=== PATIENT | female | born 1970 | race Caucasian/White ===

== ENCOUNTER 2023-03-05 18:53 | Emergency (ER) | payer SELFPAY ==
[2023-03-05] MEDS ORDERED: diphenhydrAMINE 25 MG CAP ONE (20:01)
[2023-03-05] MEDS ORDERED: Famotidine 20 MG TAB ONE (20:01)
[2023-03-05] MEDS ORDERED: predniSONE 20 MG TAB ONE (20:01)
[2023-03-05] MEDS ORDERED: Ibuprofen 200 MG TAB ONE (20:01)
== END 2023-03-05 21:13 | disposition home or self-care (01) ==
LOC: ERS 18:53
DX: T78.40XA Allergy, unspecified, initial encounter (principal); E78.5 Hyperlipidemia, unspecified; I10 Essential (primary) hypertension; Z87.891 Personal history of nicotine dependence
CPT/HCPCS: 99283; J7512

== ENCOUNTER 2023-04-04 05:37 | Emergency (ER) | payer SELFPAY ==
[2023-04-04] MEDS ORDERED: Fluorescein Opthalmic Strip ONE (06:05)
[2023-04-04] MEDS ORDERED: Proparacaine 0.5% Opth 15 ML BOT ONE (06:05)
== END 2023-04-04 06:20 | disposition home or self-care (01) ==
LOC: ERS 05:37
DX: S05.01XA Injury of conjunctiva and corneal abrasion without foreign body, right eye, initial encounter (principal); I10 Essential (primary) hypertension; X58.XXXA Exposure to other specified factors, initial encounter; Z87.891 Personal history of nicotine dependence
CPT/HCPCS: 99282

== ENCOUNTER 2023-04-21 13:19 | Emergency (ER) | payer OTHER, SELFPAY ==
[2023-04-21] MEDS ORDERED: Acetaminophen 500 MG TAB ONE (13:56)
[2023-04-21] MEDS ORDERED: Cyclobenzaprine 10 MG TAB ONE (13:57)
== END 2023-04-21 14:50 | disposition home or self-care (01) ==
LOC: ERS 13:19
DX: S39.012A Strain of muscle, fascia and tendon of lower back, initial encounter (principal); S70.251A Superficial foreign body, right hip, initial encounter; E78.5 Hyperlipidemia, unspecified; I10 Essential (primary) hypertension; Z87.891 Personal history of nicotine dependence; V89.2XXA Person injured in unspecified motor-vehicle accident, traffic, initial encounter
CPT/HCPCS: 72170